=== PATIENT | female | born 1970 | race Hispanic/Latino ===

== ENCOUNTER → 2022-07-25 | Outpatient (CLI) | payer OTHER | LOC: MAMMO 14:49 | PROVIDERS: ATTEND Family Medicine | DX: Z12.31 Encounter for screening mammogram for malignant neoplasm of breast (principal) | CPT/HCPCS: 77067 ==

== ENCOUNTER → 2023-01-01 | Outpatient (REF) | payer OTHER | LOC: RAD 15:40 | PROVIDERS: ATTEND Family Medicine | DX: R05.4 Cough syncope (principal); M25.551 Pain in right hip; M25.561 Pain in right knee; M54.2 Cervicalgia | CPT/HCPCS: 71046; 72050 ==

== ENCOUNTER → 2023-09-25 | Outpatient (REF) | payer OTHER | LOC: MAMMO 08:12 | PROVIDERS: ATTEND Family Medicine | DX: R92.30 Dense breasts, unspecified (principal) | CPT/HCPCS: 77066 ==

== ENCOUNTER → 2024-09-25 | Outpatient (REF) | payer OTHER | LOC: MAMMO 15:05 | PROVIDERS: ATTEND Family Medicine | DX: Z12.31 Encounter for screening mammogram for malignant neoplasm of breast (principal) | CPT/HCPCS: 77067 ==

== ENCOUNTER → 2024-12-19 | Day surgery (SDC) | payer OTHER ==
[~2024-12-19] MED LIST: GLUCAGON FOR INJ 1 MG VIAL ONE; HYOSCYAMINE SULFATE 0.5 MG/ML INJ ONE; IBUPROFEN200 MG PO; LIDOCAINE HCL 2% LOCAL INJ 5 ML SDV VIAL INJ ONE; PROPOFOL IV EMULSION 10 MG/ML 20 ML VIAL ONE; TYLENOL PM EXS1 EACH PO
[2024-12-19] MEDS: LACTATED RINGER'S 1,000 ML ONE (12:03)
[2024-12-19 13:06] VITALS: TEMP 97
[2024-12-19 13:35] VITALS: BP 125/87; PULSE 64; RESP 18; O2SAT 100
== END | disposition home or self-care (01) ==
LOC: OR 11:19
PROVIDERS: ATTEND Internal Medicine Gastroenterology
DX: Z12.11 Encounter for screening for malignant neoplasm of colon (principal); D12.0 Benign neoplasm of cecum; D12.2 Benign neoplasm of ascending colon; K29.00 Acute gastritis without bleeding; K29.50 Unspecified chronic gastritis without bleeding; B96.81 Helicobacter pylori [H. pylori] as the cause of diseases classified elsewhere; K22.2 Esophageal obstruction; K31.89 Other diseases of stomach and duodenum; K20.90 Esophagitis, unspecified without bleeding; K64.8 Other hemorrhoids; Z71.89 Other specified counseling; Z72.0 Tobacco use; Z71.6 Tobacco abuse counseling; Z01.810 Encounter for preprocedural cardiovascular examination; Z79.1 Long term (current) use of non-steroidal anti-inflammatories (NSAID); Z68.28 Body mass index [BMI] 28.0-28.9, adult; Z71.3 Dietary counseling and surveillance
CPT/HCPCS: 43239; 43450; 45385; 81025; 93005; J1610; J1980; J2003; J2470; J2704; J7121; 45378